=== PATIENT | male | born 1955 | race Caucasian/White ===

== ENCOUNTER 2018-06-10 09:08 | Day surgery (SDC) | payer BC ==
[2018-06-05 17:51] VITALS: BMI 33.5
[~2018-06-10 09:08] MED LIST: LACTATED RINGERS 1,000 ML IV SCH
[2018-06-10 10:16] VITALS: RESP 16; TEMP 98
[2018-06-10] MEDS ORDERED: LIDOCAINE 1% 20 ML VIAL (10MG/ML) FOR IV START INTRADERMA ONE (10:24)
[2018-06-10] MEDS ORDERED: PROPOFOL 10 MG/ML 20 ML VIAL IV ONE (10:39)
[2018-06-10] MEDS ORDERED: LIDOCAINE 1% INJ 10MG/ML (20 ML MDV) ONE (10:39)
--- NOTE | 2018-06-10 10:57 | P.PCN ---
Date of Procedure: 06/10/18 Procedure(s) Performed: BRIEF HISTORY: Patient is a 63-year-old pleasant male, scheduled for an elective colonoscopy as a part of evaluation of prior history of colon polyps. Last colonoscopy was 5 years ago. PROCEDURE PERFORMED: Colonoscopy. PREOPERATIVE DIAGNOSIS: History of colon polyps. IV sedation per Anesthesia. PROCEDURE: After informed consent was obtained, the patient, was brought into the endoscopy unit. IV sedation was administered by Anesthesia under continuous monitoring. Digital rectal examination was normal. Initially the Olympus CF-160 flexible video colonoscope was then inserted in the rectum, gradually advanced into the cecum without any difficulty. Careful examination was performed as the scope was gradually being withdrawn. Ileocecal valve and the appendiceal orifice were visualized and appeared normal. Prep was excellent. Mucosa of the cecum, ascending colon, transverse colon, descending colon, sigmoid colon, and rectum appeared normal. Scattered sigmoidal diverticulosis seen. Retroflexion was performed in the rectum and no lesions were seen. The patient tolerated the procedure well. IMPRESSION: \ Normal-appearing colon from rectum to cecum with no evidence of colorectal neoplasia . Scattered sigmoidal diverticulosis. RECOMMENDATIONS: Findings of this examination were discussed with the patient as his family.. He was advised to have a repeat surveillance colonoscopy in 5 is removed because of the prior history of colon polyps.
[2018-06-10 11:27] VITALS: BP 116/72; PULSE 64
== END 2018-06-10 11:48 | disposition home or self-care (01) ==
LOC: ORWHC2ENDO 09:08
PROVIDERS: ATTEND Internal Medicine Gastroenterology
DX: Z12.11 Encounter for screening for malignant neoplasm of colon (principal); K57.90 Diverticulosis of intestine, part unspecified, without perforation or abscess without bleeding; Z86.010 Personal history of colon polyps; Z79.899 Other long term (current) drug therapy
CPT/HCPCS: J2001; J2704; G0105

== ENCOUNTER 2020-05-26 10:22 | Inpatient (IN) | payer BC ==
--- NOTE | 2020-05-26 12:07 | XR ---
EXAMINATION TYPE: XR chest 2V DATE OF EXAM: 05/26/2020 COMPARISON: None HISTORY: 65-year-old male COVID, shortness of breath TECHNIQUE: PA and lateral views FINDINGS: Heart normal size. Atherosclerotic arch calcifications. Interstitial and patchy bilateral airspace op acities. No pleural effusion. IMPRESSION: Diffuse bilateral interstitial and patchy COVID pneumonia.
[2020-05-26] MEDS ORDERED: SODIUM CHLORIDE 0.9% 1,000 ML IV STA ×2 (12:14)
[2020-05-26] MEDS ORDERED: KETOROLAC 15 MG/ML 1 ML VIAL IVP STA (12:15)
[2020-05-26] MEDS ORDERED: ALBUTEROL HFA INHALER INHALATION STA (12:15)
--- NOTE | 2020-05-26 12:22 | ED ---
SOB HPI - General Chief Complaint: Shortness of Breath Stated Complaint: Covid+, worsening symptoms Time Seen by Provider: 05/26/20 11:45 Source: patient Mode of arrival: ambulatory Limitations: no limitations - History of Present Illness Initial Comments: A 65-year-old male who was a former smoker but no diagnosed history of COPD or emphysema who states he had the onset of symptoms 6 days ago and was diagnosed with COVID-19 with resulting information yesterday who states he has headaches shortness of breath fevers body aches decreased oral intake and generally does not feel well. He was diagnosed at his family physician's office. He also feels lightheaded dizzy with ambulation. MD Complaint: shortness of breath, cough, chest pain - Related Data Home Medications Medication Instructions Recorded Confirmed Citalopram Hydrobromide [CeleXA] 40 mg PO DAILY 01/31/15 05/26/20 Allergies Allergy/AdvReac Type Severity Reaction Status Date / Time No Known Allergies Allergy Verified 05/26/20 13:39 Review of Systems ROS Statement: Those systems with pertinent positive or pertinent negative responses have been documented in the HPI. ROS Other: All systems not noted in ROS Statement are negative. Past Medical History Past Medical History: No Reported History History of Any Multi-Drug Resistant Organisms: None Reported Past Surgical History: Tonsillectomy Additional Past Surgical History / Comment(s): colonoscopy; Past Anesthesia/Blood Transfusion Reactions: No Reported Reaction Past Psychological History: Anxiety Smoking Status: Never smoker Past Alcohol Use History: None Reported Past Drug Use History: None Reported - Past Family History Mother Family Medical History: Cancer General Exam - General Exam Comments Initial Comments: This is a well-developed well-nourished awake alert oriented 3 male Limitations: no limitations General appearance: alert, in no apparent distress Head exam: Present: atraumatic, normocephalic, normal inspection Eye exam: Present: normal appearance, PERRL, EOMI. Absent: scleral icterus, conjunctival injection, periorbital swelling ENT exam: Present: mucous membranes dry Neck exam: Present: normal inspection. Absent: tenderness, meningismus, lymphadenopathy Respiratory exam: Present: normal lung sounds bilaterally. Absent: respiratory distress, wheezes, rales, rhonchi, stridor Cardiovascular Exam: Present: regular rate, normal rhythm, normal heart sounds. Absent: systolic murmur, diastolic murmur, rubs, gallop, clicks GI/Abdominal exam: Present: soft, normal bowel sounds. Absent: distended, tenderness, guarding, rebound, rigid Extremities exam: Present: normal inspection, full ROM, normal capillary refill. Absent: tenderness, pedal edema, joint swelling, calf tenderness Back exam: Present: normal inspection Neurological exam: Present: alert, oriented X3, CN II-XII intact Psychiatric exam: Present: normal affect, normal mood Skin exam: Present: warm, dry, intact, normal color. Absent: rash Course Vital Signs 05/26/20 05/26/20 10:25 14:17 Temperature 98.1 F Pulse Rate 70 Respiratory 20 18 Rate Blood Pressure 113/69 O2 Sat by Pulse 95 Oximetry Medical Decision Making - Medical Decision Making I did discuss findings with the patient he is still feels somewhat short of breath he does demonstrate evidence of bilateral pneumonia he also demonstrates evidence of rhabdomyolysis discuss findings with him and with Dr. Thompson the patient will be admitted for inpatient evaluation and treatment - Lab Data Result diagrams: 05/26/20 13:07 05/26/20 13:07 Lab Results 05/26/20 05/26/20 05/26/20 Range/Units 13:07 13:07 13:07 WBC 4.4 (3.8-10.6) k/uL RBC 4.87 (4.30-5.90) m/uL Hgb 14.8 (13.0-17.5) gm/dL Hct 41.2 (39.0-53.0) % MCV 84.6 (80.0-100.0) fL MCH 30.4 (25.0-35.0) pg MCHC 35.9 (31.0-37.0) g/dL RDW 12.9 (11.5-15.5) % Plt Count 167 (150-450) k/uL MPV 8.2 Neutrophils % 60 % Lymphocytes % 27 % Monocytes % 9 % Eosinophils % 0 % Basophils % 1 % Neutrophils # 2.6 (1.3-7.7) k/uL Lymphocytes # 1.2 (1.0-4.8) k/uL Monocytes # 0.4 (0-1.0) k/uL Eosinophils # 0.0 (0-0.7) k/uL Basophils # 0.0 (0-0.2) k/uL PT 10.1 (9.0-12.0) sec INR 0.9 (<1.2) APTT 27.4 (22.0-30.0) sec D-Dimer 0.62 H (<0.60) mg/L FEU Sodium 137 (137-145) mmol/L Potassium 4.3 (3.5-5.1) mmol/L Chloride 101 (98-107) mmol/L Carbon Dioxide 31 H (22-30) mmol/L Anion Gap 5 mmol/L BUN 9 (9-20) mg/dL Creatinine 0.59 L (0.66-1.25) mg/dL Est GFR (CKD-EPI)AfAm >90 (>60 ml/min/1.73 sqM) Est GFR (CKD-EPI)NonAf >90 (>60 ml/min/1.73 sqM) Glucose 105 H (74-99) mg/dL Plasma Lactic Acid Moshe (0.7-2.0) mmol/L Calcium 8.6 (8.4-10.2) mg/dL Magnesium 2.2 (1.6-2.3) mg/dL Total Bilirubin 0.9 (0.2-1.3) mg/dL AST 166 H (17-59) U/L ALT 87 H (4-49) U/L Alkaline Phosphatase 36 L (38-126) U/L Creatine Kinase 1461 H* (55-170) U/L Troponin I (0.000-0.034) ng/mL NT-Pro-B Natriuret Pep pg/mL Total Protein 6.8 (6.3-8.2) g/dL Albumin 3.8 (3.5-5.0) g/dL 05/26/20 05/26/20 05/26/20 Range/Units 13:07 13:07 13:07 WBC (3.8-10.6) k/uL RBC (4.30-5.90) m/uL Hgb (13.0-17.5) gm/dL Hct (39.0-53.0) % MCV (80.0-100.0) fL MCH (25.0-35.0) pg MCHC (31.0-37.0) g/dL RDW (11.5-15.5) % Plt Count (150-450) k/uL MPV Neutrophils % % Lymphocytes % % Monocytes % % Eosinophils % % Basophils % % Neutrophils # (1.3-7.7) k/uL Lymphocytes # (1.0-4.8) k/uL Monocytes # (0-1.0) k/uL Eosinophils # (0-0.7) k/uL Basophils # (0-0.2) k/uL PT (9.0-12.0) sec INR (<1.2) APTT (22.0-30.0) sec D-Dimer (<0.60) mg/L FEU Sodium (137-145) mmol/L Potassium (3.5-5.1) mmol/L Chloride (98-107) mmol/L Carbon Dioxide (22-30) mmol/L Anion Gap mmol/L BUN (9-20) mg/dL Creatinine (0.66-1.25) mg/dL Est GFR (CKD-EPI)AfAm (>60 ml/min/1.73 sqM) Est GFR (CKD-EPI)NonAf (>60 ml/min/1.73 sqM) Glucose (74-99) mg/dL Plasma Lactic Acid Moshe 1.5 (0.7-2.0) mmol/L Calcium (8.4-10.2) mg/dL Magnesium (1.6-2.3) mg/dL Total Bilirubin (0.2-1.3) mg/dL AST (17-59) U/L ALT (4-49) U/L Alkaline Phosphatase (38-126) U/L Creatine Kinase (55-170) U/L Troponin I <0.012 (0.000-0.034) ng/mL NT-Pro-B Natriuret Pep 344 pg/mL Total Protein (6.3-8.2) g/dL Albumin (3.5-5.0) g/dL - EKG Data -: EKG Interpreted by Me EKG shows normal: sinus rhythm EKG Comments: Sinus rhythm a 68. Interval 170 QRS duration 116 QT/QTC 398/423 incomplete left bundle-branch block pattern - Radiology Data Radiology results: report reviewed (Urine CT negative for PE.), image reviewed Disposition Clinical Impression: Pneumonia due to COVID-19 virus, Rhabdomyolysis, Bronchospasm Disposition: ADMITTED IP TO THIS [facility] Condition: Fair Referrals: Daniele Lew DO [Primary Care Provider] - 1-2 days
[2020-05-26 13:40] LABS: Basophils % (A) 1 %; Eosinophils % (A) 0 %; HCT 41.2 % (39.0-53.0); HGB 14.8 gm/dL (13.0-17.5); Lymphocytes # (A) 1.2 k/uL (1.0-4.8); Lymphocytes % (A) 27 %; MCH 30.4 pg (25.0-35.0); MCHC 35.9 g/dL (31.0-37.0); MCV 84.6 fL (80.0-100.0); Mean Platelet Volume 8.2; Monocytes # (A) 0.4 k/uL (0-1.0); Monocytes % (A) 9 %; Neutrophils # (A) 2.6 k/uL (1.3-7.7); Neutrophils % (A) 60 %; Platelet Count 167 k/uL (150-450); RBC 4.87 m/uL (4.30-5.90); RDW 12.9 % (11.5-15.5); WBC 4.4 k/uL (3.8-10.6)
[2020-05-26 13:56] LABS: ALT 87 U/L (4-49); AST 166 U/L (17-59); African American GFR (CKD) >90 (>60 ml/min/1.73 sqM); Albumin 3.8 g/dL (3.5-5.0); Alkaline Phosphatase 36 U/L (38-126); Anion Gap 5 mmol/L; Blood Urea Nitrogen 9 mg/dL (9-20); Calcium 8.6 mg/dL (8.4-10.2); Carbon Dioxide 31 mmol/L (22-30); Chloride 101 mmol/L (98-107); Glucose 105 mg/dL (74-99); Magnesium 2.2 mg/dL (1.6-2.3); Non-African American GFR(CKD) >90 (>60 ml/min/1.73 sqM); Potassium 4.3 mmol/L (3.5-5.1); Sodium 137 mmol/L (137-145); Total Bilirubin 0.9 mg/dL (0.2-1.3); Total Protein 6.8 g/dL (6.3-8.2)
[2020-05-26 14:06] LABS: Creatine Kinase 1461 U/L (55-170)
[2020-05-26 14:07] LABS: INR 0.9 (<1.2); Partial Thromboplastin Time 27.4 sec (22.0-30.0); Prothrombin Time 10.1 sec (9.0-12.0)
[2020-05-26 14:13] LABS: D-Dimer 0.62 mg/L FEU (<0.60)
--- NOTE | 2020-05-26 15:11 | CT ---
CT CHEST FOR PULMONARY EMBOLISM. EXAMINATION TYPE: CT angio chest DATE OF EXAM: 05/26/2020 INDICATION: dyspnea CT DLP: 657.1 mGycm, Automated exposure control for dose reduction was used. CONTRAST: Patient injected with 100 mL of Isovue 370. COMPARISON: None TECHNIQUE: CT of the chest is performed on a spiral scan at 2 mm thick sections. Study is performed with intravenous contrast timed for evaluation for pulmonary embolism. This will limit additional po rtions of the evaluation. 3-D MIP images reconstructed by the technologist are reviewed on the compu ter in the coronal and sagittal planes. FINDINGS: No persistent filling defects are evident to suggest an acute pulmonary embolism. No mediastinal or hilar adenopathy enlarged by CT criteria is evident. The ascending aorta diameter at the level of the main pulmonary artery is 3.7 cm. The main pulmonary artery diameter at the bifur cation is 3.6 cm. Patchy bilateral lung infiltrates are present. Correlate for atypical pneumonia. Limited CT section through the upper abdomen are unremarkable. IMPRESSIONS: 1. No acute pulmonary embolism. 2. Patchy infiltrates present bilaterally can be compatible with atypical pneumonia.
[2020-05-26] MEDS ORDERED: NALOXONE 0.4 MG/ML 1 ML VIAL IV PRN (16:20)
[2020-05-26] MEDS: ACETAMINOPHEN TAB 325 MG TAB PO PRN (18:08)
[2020-05-26] MEDS: SODIUM CHLORIDE 0.9% 1,000 ML IV SCH (18:10)
[2020-05-26] MEDS ORDERED: ALBUTEROL HFA INHALER INHALATION SCH (20:00)
[2020-05-26] MEDS ORDERED: ALBUTEROL HFA INHALER INHALATION PRN (22:37)
[2020-05-27] MEDS: SODIUM CHLORIDE 0.9% 1,000 ML IV SCH ×3 (08:02→16:29)
[2020-05-27] MEDS: ENOXAPARIN 40 MG/0.4 ML SYRINGE SQ SCH (08:26)
[2020-05-27] MEDS ORDERED: dexAMETHasone 2 MG TAB PO SCH (10:45)
[2020-05-27] MEDS: ZINC SULFATE 220 MG CAP PO SCH (11:36)
[2020-05-27] MEDS: ALBUTEROL HFA INHALER INHALATION SCH ×4 (12:47→19:54)
[2020-05-27 13:00] LABS: ALT 76 U/L (4-49); AST 121 U/L (17-59); African American GFR (CKD) >90 (>60 ml/min/1.73 sqM); Albumin 3.3 g/dL (3.5-5.0); Albumin/Globulin Ratio 1.2; Alkaline Phosphatase 40 U/L (38-126); Anion Gap 7 mmol/L; Blood Urea Nitrogen 6 mg/dL (9-20); Calcium 8.3 mg/dL (8.4-10.2); Carbon Dioxide 29 mmol/L (22-30); Chloride 102 mmol/L (98-107); Globulin 2.7 g/dL; Glucose 130 mg/dL (74-99); LDH 1173 U/L (313-618); Non-African American GFR(CKD) >90 (>60 ml/min/1.73 sqM); Potassium 3.8 mmol/L (3.5-5.1); Sodium 138 mmol/L (137-145); Total Bilirubin 0.7 mg/dL (0.2-1.3)
[2020-05-27] MEDS: methylPREDNISolone SOD SUCCI 125 MG/2 ML VIAL IV SCH ×2 (13:36→16:28)
--- NOTE | 2020-05-27 22:22 | P.HPIM ---
History of Present Illness H&P Date: 05/27/20 Chief Complaint: Cough and SOB Patient is a 65-year-old male with a known history of anxiety/depression currently taking Celexa, previous history of smoking presents to ER with complaints of pain with complaints of headache, cough and generalized body aches and decreased oral intake. Patient was also complaining of dizziness. He was tested for COVID-19 on Friday and results came yesterday by his primary care physician. Chest x-ray showed diffuse bilateral interstitial and patchy Covid pneumonia. CT angiogram of the chest showed no acute pulmonary embolism. Patchy in filtrates present bilaterally can be compatible with atypical pneumonia Laboratory data showed D-dimer 0.62, WBC 4.4 hemoglobin 14.8 and lymphocytes 1.2 AST 166 ALT 87 alk phos 36 CK 1461 and troponin x1 - proBNP 344 and LDH 1173 BUN 9 and creatinine 0.59 Patient is currently saturating at 95% on room air afebrile. Review of Systems Constitutional: Patient denies any fever or chills . generalized weakness and fatique. Abdomen: Patient denied nausea vomiting and diarrhea and abdominal pain. Cardiovascular: Patient denies any chest pain or short of breath no palpit ations. Respiratory: Patient does have severe cough without sputum production and shortness of breath Neurologic: Patient denied any numbness or tingling headache. Musculoskeletal: Patient denies any complaints of joint swelling or deformity. Skin: Negative Psychiatric: Negative Endocrine: No heat or cold intolerance. No recent weight gain. Genitourinary: No dysuria or hematuria. All other 14 point ROS negative except the above Past Medical History Past Medical History: No Reported History History of Any Multi-Drug Resistant Organisms: None Reported Past Surgical History: Tonsillectomy Additional Past Surgical History / Comment(s): colonoscopy; Past Anesthesia/Blood Transfusion Reactions: No Reported Reaction Past Psychological History: Anxiety Smoking Status: Never smoker Past Alcohol Use History: None Reported Past Drug Use History: None Reported - Past Family History Mother Family Medical History: Cancer Medications and Allergies Home Medications Medication Instructions Recorded Confirmed Type Citalopram Hydrobromide [CeleXA] 40 mg PO DAILY 01/31/15 05/26/20 History Allergies Allergy/AdvReac Type Severity Reaction Status Date / Time No Known Allergies Allergy Verified 05/26/20 13:39 Physical Exam Vitals: Vital Signs Temp Pulse Resp BP Pulse Ox 05/27/20 07:51 98.0 F 67 18 128/77 95 05/27/20 05:51 74 22 119/65 94 L 05/27/20 03:11 68 24 116/57 95 05/26/20 18:00 98.3 F 73 18 116/73 93 L 05/26/20 14:17 18 PHYSICAL EXAMINATION: Patient is lying in the bed comfortably, no acute distress, awake alert and oriented.. HEENT: Normocephalic. Neck is supple. Pupils reactive. Nostrils clear. Oral cavity is moist. Ears reveal no drainage. Neck reveals no JVD, carotid bruits, or thyromegaly. CHEST EXAMINATION: Trachea is central. Symmetrical expansion. Bilateral diffuse wheezing. Nonlabored breathing.. CARDIAC: Normal S1, S2 with no gallops. No murmurs ABDOMEN: Soft. Bowel sounds normal. No organomegaly. No abdominal bruits. Extremities: reveal no edema. No clubbing or cyanosis Neurologically awake, alert, oriented x3 with well-coordinated movements. No focal deficits noted Skin: No rash or skin lesions. Psychiatric: Coperative. Nonsuicidal Musculoskeletal: No joint swelling or deformity. Normal range of motion. Results CBC & Chem 7: 05/26/20 13:07 05/27/20 12:24 Labs: Abnormal Lab Results - Last 24 Hours (Table) 05/26/20 05/26/20 Range/Units 13:07 13:07 D-Dimer 0.62 H (<0.60) mg/L FEU Carbon Dioxide 31 H (22-30) mmol/L Creatinine 0.59 L (0.66-1.25) mg/dL Glucose 105 H (74-99) mg/dL AST 166 H (17-59) U/L ALT 87 H (4-49) U/L Alkaline Phosphatase 36 L (38-126) U/L Creatine Kinase 1461 H* (55-170) U/L Thrombosis Risk Factor Assmnt - DVT/VTE Prophylaxis DVT/VTE Prophylaxis: Pharmacologic Prophylaxis ordered Assessment and Plan Assessment: Acute COVID-19 pneumonia Bronchospasm with diffuse wheezing on exam Rhabdomyolysis Severe cough, headache body aches and generalized weakness and dizziness. Elevated inflammatory markers Anxiety DVT prophylaxis with Lovenox Plan: Patient will be started methylprednisolone IV and Lovenox subcu. Continue with ascorbic acid, vitamin D and IV hydration. Monitor CK level. Patient is currently on room air saturating at 95%. Continue to follow closely and further recommendations based on the clinical course. Time with Patient: Greater than 30
[2020-05-28] MEDS: methylPREDNISolone SOD SUCCI 125 MG/2 ML VIAL IV SCH ×5 (00:53→23:37)
[2020-05-28] MEDS: SODIUM CHLORIDE 0.9% 1,000 ML IV SCH ×3 (00:54→20:12)
[2020-05-28] MEDS: ACETAMINOPHEN TAB 325 MG TAB PO PRN ×2 (06:15→20:12)
[2020-05-28] MEDS: CITALOPRAM HYDROBROMIDE 20 MG TAB PO SCH (07:18)
[2020-05-28] MEDS: ZINC SULFATE 220 MG CAP PO SCH (07:18)
[2020-05-28] MEDS: CHOLECALCIFEROL 25 MCG (1000 IU) TABLET PO SCH (07:18)
[2020-05-28] MEDS: ENOXAPARIN 40 MG/0.4 ML SYRINGE SQ SCH (07:18)
[2020-05-28] MEDS: ASCORBIC ACID 500 MG TAB PO SCH ×2 (07:18→20:13)
[2020-05-28] MEDS: ALBUTEROL HFA INHALER INHALATION SCH ×4 (08:55→19:22)
[2020-05-28 09:35] LABS: C Reactive Protein 1.6 mg/dL (0.0-0.8)
[2020-05-29] MEDS: SODIUM CHLORIDE 0.9% 1,000 ML IV SCH ×2 (05:46→11:56)
[2020-05-29] MEDS: methylPREDNISolone SOD SUCCI 125 MG/2 ML VIAL IV SCH ×2 (05:47→11:54)
[2020-05-29 08:09] VITALS: BP 124/75; PULSE 62; RESP 20; TEMP 97.4
[2020-05-29] MEDS: ZINC SULFATE 220 MG CAP PO SCH (08:11)
[2020-05-29] MEDS: ASCORBIC ACID 500 MG TAB PO SCH (08:11)
[2020-05-29] MEDS: CHOLECALCIFEROL 25 MCG (1000 IU) TABLET PO SCH (08:11)
[2020-05-29] MEDS: ENOXAPARIN 40 MG/0.4 ML SYRINGE SQ SCH (08:11)
[2020-05-29] MEDS: CITALOPRAM HYDROBROMIDE 20 MG TAB PO SCH (08:11)
[2020-05-29] MEDS: ALBUTEROL HFA INHALER INHALATION SCH ×2 (08:26→11:16)
[2020-05-29 09:11] LABS: HCT 36.8 % (39.6-50.0); HGB 12.1 g/dL (13.0-17.0); MCH 28.4 pg (27.0-32.0); MCHC 32.9 g/dL (32.0-37.0); MCV 86.4 fL (80.0-97.0); Mean Platelet Volume 11.1 fL (9.5-12.2); Platelet Count 249 X 10*3/uL (140-440); RBC 4.26 X 10*6/uL (4.40-5.60); WBC 12.44 X 10*3/uL (4.50-10.00)
[2020-05-29 09:55] LABS: Basophils # (A) 0.01 X 10*3/uL (0.00-0.10); Basophils % (A) 0.1 %; Eosinophils # (A) 0 X 10*3/uL (0.04-0.35); Eosinophils % (A) 0 %; Lymphocytes # (A) 1.32 X 10*3/uL (0.90-5.00); Lymphocytes % (A) 10.6 %; Monocytes # (A) 0.66 X 10*3/uL (0.20-1.00); Monocytes % (A) 5.3 %; Neutrophils # (A) 10.37 X 10*3/uL (1.80-7.70); Neutrophils % (A) 83.4 %
[2020-05-29 10:49] LABS: Anion Gap 8.3 mmol/L (4.00-12.00); C Reactive Protein 0.5 mg/dL (0.0-0.8); Calcium 8.9 mg/dL (8.7-10.3); Carbon Dioxide 23.7 mmol/L (21.6-31.8)
--- NOTE | 2020-05-29 13:32 | P.DS ---
Providers Date of admission: 05/26/20 16:23 Expected date of discharge: 05/29/20 Attending physician: Adrian Thompson Primary care physician: Daniele Lew Hospital Course: Final diagnosis Acute COVID-19 pneumonia Bronchospasm with diffuse wheezing on exam Rhabdomyolysis Severe cough, headache body aches and generalized weakness and dizziness. Elevated inflammatory markers Anxiety DVT prophylaxis Full code Discharge disposition Patient is being discharged in a stable condition with guarded prognosis to home. Patient will follow-up with Dr. Lew at the [facility] in the outpatient setting upon discharge. Patient is to continue with prednisone taper along with vitamin and zinc supplements. Total time taken is greater than 35 minutes. Hospital course Patient is a 65-year-old male with a known history of anxiety/depression currently taking Celexa, previous history of smoking presents to ER with complaints of pain with complaints of headache, cough and generalized body aches and decreased oral intake. Patient was also complaining of dizziness. He was tested for COVID-19 on Friday and results came yesterday by his primary care physician. Chest x-ray showed diffuse bilateral interstitial and patchy Covid pneumonia. CT angiogram of the chest showed no acute pulmonary embolism. Patchy infiltrates present bilaterally can be compatible with atypical pneumonia Laboratory data showed D-dimer 0.62, WBC 4.4 hemoglobin 14.8 and lymphocytes 1.2 AST 166 ALT 87 alk phos 36 CK 1461 and troponin x1 - proBNP 344 and LDH 1173 BUN 9 and creatinine 0.59 Patient is currently saturating at 95% on room air afebrile. 05/29/2020 Patient is seen and evaluated in follow-up with no acute overnight issues. Patient continues on room air and denies any worsening shortness of breath. Patient is using inhalers and will give a prescription for albuterol inhaler upon discharge. Patient will also continue with the prednisone taper and vitamin and zinc supplements. Patient encouraged to continue to isolate for an additional 7 days until symptom-free and follow-up with primary care provider. Continue with hand washing frequently, wearing masks, social distancing, and isolating. Inflammatory markers trending down and instructed the patient to follow-up with primary care provider to monitor these closely. Currently no reports of chest pain, worsening shortness of breath, or palpitations. Patient is afebrile. No reports of nausea or vomiting and patient is tolerating diet. Patient will be discharged home today. On exam vital signs are stable. Cardio S1, S2 are muffled. Respiratory system shows diminished breath sounds at the bases with no wheezing or rhonchi noted. Abdomen is soft and nontender. Nervous system shows no focal deficits. Please refer to medication reconciliation sheet for a list of medications. Patient Condition at Discharge: Fair Plan - Discharge Summary Discharge Rx Participant: No New Discharge Prescriptions: New predniSONE 10 mg PO DIRECTED #30 tab Acetaminophen Tab [Tylenol] 650 mg PO Q6HR PRN #30 tab PRN Reason: Mild Pain Or Fever > 100.5 Albuterol Inhaler [Ventolin Hfa Inhaler] 2 puff INHALATION RT-Q4H PRN puff PRN Reason: Shortness Of Breath Or Wheezing Ascorbic Acid [Vitamin C] 500 mg PO BID 30 Days #60 tab Cholecalciferol [Vitamin D3 (25 Mcg = 1000 Iu)] 100 mcg PO DAILY 30 Days #120 tablet Zinc Sulfate [Orazinc] 220 mg PO DAILY 30 Days #30 cap Albuterol Inhaler [Ventolin Hfa Inhaler] 2 puff INHALATION RT-QID 30 Days #1 puff Continue Citalopram Hydrobromide [CeleXA] 40 mg PO DAILY Discharge Medication List Citalopram Hydrobromide [CeleXA] 40 mg PO DAILY 01/31/15 [History] Acetaminophen Tab [Tylenol] 650 mg PO Q6HR PRN #30 tab 05/29/20 [Rx] Albuterol Inhaler [Ventolin Hfa Inhaler] 2 puff INHALATION RT-Q4H PRN puff 05/29/20 [Rx] Albuterol Inhaler [Ventolin Hfa Inhaler] 2 puff INHALATION RT-QID 30 Days #1 puff 05/29/20 [Rx] Ascorbic Acid [Vitamin C] 500 mg PO BID 30 Days #60 tab 05/29/20 [Rx] Cholecalciferol [Vitamin D3 (25 Mcg = 1000 Iu)] 100 mcg PO DAILY 30 Days #120 tablet 05/29/20 [Rx] Zinc Sulfate [Orazinc] 220 mg PO DAILY 30 Days #30 cap 05/29/20 [Rx] predniSONE 10 mg PO DIRECTED #30 tab 05/29/20 [Rx] Follow up Appointment(s)/Referral(s): Daniele Lew DO [Primary Care Provider] - 1-2 days (patient states he will call and make follow up appt) Patient Instructions/Handouts: Albuterol (By breathing), Prednisone (By mouth), Zinc Sulfate (By mouth), Ascorbic Acid (By mouth), Cholecalciferol (By mouth), Coronavirus Disease 2019 (COVID-19) Activity/Diet/Wound Care/Special Instructions: Activity Limited until follow-up follow up with primary care provider upon discharge Continue with prednisone taper until finished Continue to monitor for fever and treat with Tylenol and/or Motrin Continue to isolate for an additional 7 days until symptom-free Encourage fluids and rest Slowly increase activity as tolerated Discharge Disposition: HOME SELF-CARE
== END 2020-05-29 13:06 | disposition home or self-care (01) | DRG 177 ==
LOC: EC 10:22 → 4SSUR 16:23 → 6NMEDSUR 05-27 14:37
PROVIDERS: ADMIT Internal Medicine; ATTEND Internal Medicine
DX: U07.1 COVID-19 (principal); J12.82 Pneumonia due to coronavirus disease 2019; M62.82 Rhabdomyolysis; F41.9 Anxiety disorder, unspecified; F32.9 Major depressive disorder, single episode, unspecified; J98.01 Acute bronchospasm; Z79.899 Other long term (current) drug therapy; Z87.891 Personal history of nicotine dependence; Z90.89 Acquired absence of other organs
CPT/HCPCS: 36415; 71046; 71275; 80048; 80053; 82550; 82553; 83605; 83615; 83735; 83880; 84484; 85025; 85379; 85610; 85730; 86140; 87040; 93005; 94640; 96361; 96374; 99285